=== PATIENT | female | born 1965 | race Caucasian/White ===

== ENCOUNTER 2021-04-21 15:51 | Outpatient (REF) | payer BC, SELFPAY ==
[2021-04-21 16:57] LABS: HCT 40.7 % (36.0-46.0); HGB 13.5 g/dL (11.2-15.7); MCH 29.2 pg (27.0-33.0); MCHC 33.2 % (32.0-36.0); MCV 87.9 fL (80-95); MPV 12.2 fL (8.0-11.0); Platelet Count 245 10^3/uL (130-400); RBC 4.63 10^6/uL (3.93-5.22); RDW 13.2 % (11.7-14.6); RDW-SD 42.7 fL; WBC 9.19 10^3/uL (4.4-10.8)
[2021-04-21 17:32] LABS: ALT 29 U/L (14-59); AST 17 U/L (15-37); Albumin 3.6 g/dL (3.4-5.0); Alkaline Phosphatase 77 U/L (46-116); Anion Gap 8.2 mmol/L (3-11); BUN 16 mg/dL (7-18); Bilirubin, Total 0.5 mg/dL (0.2-1.0); CO2 26.8 mmol/L (21.0-32.0); CREATININE 0.8 mg/dL (0.55-1.02); Calcium 8.8 mg/dL (8.5-10.1); Calculated LDL 84 mg/dL (<100); Chloride 107 mmol/L (98-107); Cholesterol 163 mg/dL (<200); Glucose 87 mg/dL (74-106); HDL Cholesterol 68 mg/dL (40-60); Potassium 4.5 mmol/L (3.5-5.1); Sodium 142 mmol/L (136-145); Total Protein 6.4 g/dL (6.4-8.2); Triglyceride 56 mg/dL (<150)
== END 2021-04-21 15:52 | disposition home or self-care (01) ==
LOC: NCHCN 15:51
PROVIDERS: Visit Provider Physician Assistant
DX: Z00.00 Encounter for general adult medical examination without abnormal findings (principal); Z13.220 Encounter for screening for lipoid disorders
CPT/HCPCS: 80053; 80061; 85027

== ENCOUNTER 2021-09-27 13:41 | Outpatient (REF) | payer BC, SELFPAY ==
--- NOTE | 2021-09-27 13:21 | ENDOMET_PTH ---
PATIENT: Maureen Saucedo LOC: [facility] U#:[id number] AGE/SX: 56/F ROOM: RE09/27/[address]: Maria Luisa Morris MD : 1965 BED: DIS: 09/27/2021 SPEC #: [id number] RECD: 09/27/21 16:39 STATUS: BASSEM REDalila #: [id number] JIMBO: 09/27/21 13:[address]: Maria Luisa Morris DEPT: Surgical Specimen RECD BY: Clementine Valencia Tissues: 1 - ENDOMETRIUM DEBI/MIHAI Procedures: GROSS AND MICRO LEVEL 4 Comments: [id number]
== END 2021-09-27 13:42 | disposition home or self-care (01) ==
LOC: LBN 13:41
PROVIDERS: Visit Provider Obstetrics & Gynecology
DX: N93.8 Other specified abnormal uterine and vaginal bleeding (principal); N85.8 Other specified noninflammatory disorders of uterus
CPT/HCPCS: 88305

== ENCOUNTER 2022-01-30 19:01 | Outpatient (REF) | payer BC, SELFPAY | END 2022-01-30 19:02 | disposition home or self-care (01) | LOC: LBN 19:01 | PROVIDERS: PCP Physician Assistant; Visit Provider Nurse Practitioner Women's Health | DX: R30.0 Dysuria (principal); N76.0 Acute vaginitis | CPT/HCPCS: 87086; 87480; 87510; 87660 ==

== ENCOUNTER 2022-04-14 11:12 | Outpatient (REF) | payer BC, SELFPAY ==
--- NOTE | 2022-04-14 09:30 | PAPFT_PTH ---
PATIENT: Maureen Saucedo LOC: [facility] U#:[id number] AGE/SX: 56/F ROOM: RE04/14/[address]: Connor May : 1965 BED: DIS: 04/14/2022 SPEC #: [id number] RECD: 04/14/22 17:12 STATUS: BASSEM REQ #: [id number] JIMBO: 04/14/22 09:[address]: Connor May DEPT: [facility] Cytology RECD BY: Clementine Valencia Tissues: 1 - CX/ENDOCX FOR PAP SMEARS Procedures: PAP THIN PREP/UVM Screening HPV DNA PROBE Comments: [id number]
== END 2022-04-14 11:13 | disposition home or self-care (01) ==
LOC: NCHCN 11:12
PROVIDERS: PCP Physician Assistant; Visit Provider Physician Assistant
DX: Z12.4 Encounter for screening for malignant neoplasm of cervix (principal); Z00.00 Encounter for general adult medical examination without abnormal findings; Z11.51 Encounter for screening for human papillomavirus (HPV)
CPT/HCPCS: 88142; 87624

== ENCOUNTER → 2022-05-10 02:33 | Outpatient (CLI) | payer BC, SELFPAY ==
--- NOTE | 2022-05-10 | DI.MAMMO_ITS ---
Exam(s) MAMMO SCREENING EXAM: MAMMO SCREENING CLINICAL HISTORY: SCREENING, Z12.39 TECHNIQUE: Mammograms were interpreted according to the usual protocol including computer analysis w [employer] CAD system, tomosynthesis and C-view imaging. COMPARISON: FINDINGS: The breasts are heterogeneously dense. No dominant mass or clumped microcalcification is identified in either breast. The current examination is compared with previous examinations including September and there has been no gross interval change in appearance in comparison with the prior studies. IMPRESSION: No specific evidence of malignancy at this time. Routine screening examinations are suggested at yea rly intervals due to the family history of breast carcinoma. BI-RADS Category 1 - Negative Breast Density - Category C - Heterogeneously dense
== END ==
PROVIDERS: PCP Physician Assistant; Visit Provider Physician Assistant
DX: Z12.31 Encounter for screening mammogram for malignant neoplasm of breast (principal); Z80.3 Family history of malignant neoplasm of breast
CPT/HCPCS: 77063; 77067

== ENCOUNTER 2022-06-28 17:43 | Outpatient (REF) | payer BC, SELFPAY ==
[2022-06-28 12:50] LABS: Bilirubin Negative (Negative); Blood Small (Negative); Clarity Clear (Clear); Glucose Negative (Negative); Ketones Negative (Negative); Leukocyte Esterase Negative (Negative); Nitrite Negative (Negative); Urobilinogen 0.2 EU/dL (Up TO 0.2)
[2022-06-28 13:10] LABS: Bacteria Rare HPF (Negative); Crystals Negative HPF (Negative); Epithelial Cells Many HPF (Negative); Mucus Negative (Negative); WBC 0-2 HPF (0-5)
[2022-06-28 13:11] LABS: C & S Indicated? No/Sq. Contamination; Casts Negative LPF (Negative)
== END 2022-06-28 17:44 | disposition home or self-care (01) ==
LOC: LBN 17:43
PROVIDERS: PCP Physician Assistant; Visit Provider Nurse Practitioner Gerontology
DX: R31.9 Hematuria, unspecified (principal)
CPT/HCPCS: 81003; 81015

== ENCOUNTER 2022-12-01 07:11 | Day surgery (SDC) | payer BC, SELFPAY ==
--- NOTE | 2022-11-30 10:56 | COLE_ITS ---
Date of service: 12/01/22 Time of Service: 09:14 Colonoscopy Report Date of procedure: 12/01/22 Pre-op diagnosis general: Hx of polyps Post-op diagnosis procedure note: other (normal ) Surgeon: Maureen Stoner Anesthesia Type: General:No Airway Estimated blood loss (mL): 0 Pathology: none sent Complications: None Disposition: same day Prep: Miralax/Dulcolax Retraction Time: 7 Procedure Description: After informed consent was obtained the patient was taken to the procedure room and placed in a left decubitous position. Monitors were applied and a time out was done. The patients name, date of , procedure, allergies to medications and metal in their body was reviewed. The patient was then sedated. Once sedated and comfortable a rectal exam was done. External exam was normal. Internal exam revealed a normal sphincter tone and no palpable masses. The scope was then introduced and retrofelexed. No internal hemorrhoids were identified. The scope was then advanced to the cecum with difficulty. The colo n is very tortuous and redundant colon. the TI and appendiceal orifice were identified. The prep was BBPS 3 in all segments for a total of 9. the scope was then slowly retracted over 7 minutes back into the rectum. there are no polyps, AVMs, or diverticula visualized today. Mucosa is pink and healthy with a normal vascular pattern. The scope was removed and the patient was woken up and taken back to Same day surgery in stable condition. The patient tolerated the procedure well and there were no immediate complications. Follow up: The patient should follow up in 10 years unless they develop changes in bowel habits or other new gastrointestinal complaints. For your next colon cancer screening consider having a Cologuard due to tortuosity.
--- NOTE | 2022-11-30 20:15 | PDOC.DSDIS_ITS ---
Date of service: 12/01/22 Time of Service: 09:17 Discharge Plan Disposition Patient Disposition: Home Condition: Good Discharge Details Reason For Visit: Colonoscopy Attending Provider: Maureen Stoner Primary Care Provider: Connor May Home Meds and New Rx's Prescriptions: Continued multivitamin Tablet 1 tab PO DAILY vitamin B complex [B Complex-Vitamin B12] Tablet 1 tab PO DAILY ascorbate calcium (vitamin C) 500 mg tablet 500 mg PO DAILY fluticasone propionate 50 mcg/actuation spray,suspension 2 spray intranasal DAILY Rx Instructions: administer into each nostril azelastine 205.5 mcg (0.15 %) spray,non-aerosol 2 spray intranasal DAILY PRN Rx Instructions: administer into each nostril black cohosh 200 mg capsule 200 mg PO DAILY PRN cholecalciferol (vitamin D3) 325 mcg (13,000 unit) capsule 325 mcg PO QWEEK coenzyme Q10 [Co Q-10] 10 mg capsule 10 mg PO ONCE estradiol 0.01 % (0.1 mg/gram) cream 1 g vaginal HS Qty: 60 3RF Rx Instructions: Insert a pea sized amount vaginally nightly for 2 weeks, then reduce to 3 times per week Discontinued bisacodyl 5 mg tablet,delayed release (DR/EC) 5 mg PO ONCE Qty: 4 0RF Rx Instructions: Per Colonoscopy bowel prep instructions polyethylene glycol 3350 17 gram/dose powder 238 g PO ONCE Qty: 238 0RF Rx Instructions: For Colonoscopy bowel prep, as directed by office Discharge Instructions Additional Instructions: DSU Colonoscopy Post- Op Instructions Instructions for Everyone who is given Anesthesia: For your safety, please do the following for the next twenty-four (24) hours: *Do Not operate a motor vehicle (car, truck, motorcycle, etc.) *Do Not drink alcoholic beverages or use any recreational drugs for the first 24 hours or while taking pain medications. The medications in your body may have a reaction that can be dangerous. *Do Not make any important decisions or sign any important papers. Findings: normal Follow up: consider cologuard in 10 yrs time 1. No lifting over 20 pounds or strenuous activity for the first 24 hours after your procedure. After 24 hours there are no restrictions on your activity but you may feel fatigued for a few days. 2. After you arrive home you may have a light meal and return to your normal diet as you can tolerate it without feeling sick to your stomach. 3. You may have a bloated, gaseous feeling in your belly (abdomen) after a colonoscopy. Passing gas and belching will help. Walking or lying down on your left side with your knees flexed may relieve the discomfort. Call the office at [phone] (Office) or [phone] (Hospital) right away if you notice any of the following: a.Vomiting of blood or ?coffee ground stools?. b.Rectal bleeding 1Tbsp, blood clots or continuous bleeding. c.Severe belly (abdominal) pain. d.A hard distended belly (abdomen) and an inability to pass gas. 4. Please don?t expect to have a normal BM (bowel movement) for 2-3 days after your procedure. 5. If there are questions regarding the findings of your procedure, please contact your doctor 6. If you are unable to contact your doctor with a problem, contact the hospital at [phone]. 7. Continue all your regular medications unless directed otherwise. I understand the above instructions and have no questions. Signature of Patient or Adult Escort Name of Responsible Adult Escort Signature of Nurse Date/Time Stand Alone Forms: Anesthesia Discharge Inst., Press Ganey (DSU) Activity:: see above Diet:: see above Discharge Orders Discharge Orders: Discharge Order (Routine); Ordered 12/01/22 Ordered By: Maureen Stoner DS: Diagnosis Discharge Diagnosis (1) History of colon polyps: Status: Acute Asessment and Plan: The patient is seen and examined after their colonoscopy.? The patient has been able to pass gas.? They are not having abdominal pain.? They have been able to tolerate liquids and a snack.? They do not have any nausea or vomiting.? They are not having any chest pain or shortness of breath.??? They are not having any rectal bleeding. Their vital signs have been stable-see nursing notes. We discussed findings during their colonoscopy, and any biopsies that were done/polyps that were removed. The patient will be sent a letter with any biopsy results, and when to repeat the colonoscopy.-see discharge instructions. Patient was given explicit instructions to follow-up regarding colonoscopy-refer to discharge instructions.? We reviewed resumption of medications.Patient verbalized understanding and discharged in stable and satisfactory condition- See nursing notes (2) Overweight: (3) Uterine fibroid: Status: Acute (4) Hematuria: Status: Acute (5) Perimenopausal: Status: Acute
--- NOTE | 2022-12-01 06:58 | W.ANESPRE ---
General Info Date of Service Date Performed: 12/01/22 Height: 5 ft 3 in Weight: 66.678 kg Body Mass Index (BMI): 26.0 Surgical Procedure: Operation Date: 12/01/22 08:20 Proposed Procedure Side Surgeon gerri Stoner, Meds Allergies and Home Medications Allergies Allergy/AdvReac Type Severity Reaction Status Date / Time No Known Drug Allergies Allergy Verified 12/01/22 07:30 Home Medication Medication Instructions Recorded cholecalciferol (vitamin D3) 325 325 mcg PO QWEEK 08/16/21 mcg (13,000 unit) capsule coenzyme Q10 10 mg capsule (Co 10 mg PO ONCE 08/16/21 Q-10) ascorbate calcium (vitamin C) 500 500 mg PO DAILY 04/19/22 mg tablet fluticasone propionate 50 2 spray intranasal DAILY 04/19/22 mcg/actuation nasal spray,suspension multivitamin 1 tab PO DAILY 04/19/22 vitamin B complex (B 1 tab PO DAILY 04/19/22 Complex-Vitamin B12 tablet) estradiol 0.01% (0.1 mg/gram) 1 g vaginal HS #60 grams 06/29/22 vaginal cream azelastine 205.5 mcg (0.15 %) 2 spray intranasal DAILY PRN 11/16/22 nasal spray black cohosh 200 mg capsule 200 mg PO DAILY PRN 11/16/22 Current Visit Medications: Current Medications Generic Name Dose Route Start Last Admin Trade Name Freq PRN Reason Stop Dose Admin Ringer's Solution 1,000 mls @ 80 mls/hr 12/01/22 06:00 IV 12/30/22 23:59 [facility] IV Miscellaneous Supplies 1 each 12/01/22 06:00 Iv Access IV 12/30/22 23:59 DIRECTED ASHU Ondansetron HCl 4 mg 12/01/22 10:31 Ondansetron 4 Mg/2 Ml Vial IVP 12/31/22 10:30 Q4H PRN PRN Nausea / Vomiting Sodium Chloride 0 ml 12/01/22 06:00 Normal Saline Flush 10 Ml Syr IV 12/30/22 23:59 PRN PRN Sodium Chloride 0 ml 12/01/22 06:00 Normal Saline 10 Ml Vial IJ 12/30/22 23:59 DIRECTED PRN Sterile Water 0 ml 12/01/22 06:00 Water,Injection,Sterile 10 Ml Vial IJ 12/30/22 23:59 DIRECTED PRN PFSH Active Problems Active Problems: Problem Status Onset Code History of colon polyps Z86.010 History of right mastoidectomy Z90.89 Screening for colon cancer Z12.11 Hematuria R31.9 Uterine fibroid D25.9 Perimenopausal N95.1 Medical History Medical History Abnormal uterine bleeding (AUB) None since Jul 11 2021 Decreased hearing of both ears Lesion of cervix Lipid screening No pertinent past medical history Other disorders following mastoidectomy, right ear Overweight Surgical History Surgical History No significant past surgical history Tobacco Smoking/Tobacco Use Status: Former Tobacco Use Alcohol Alcohol Intake: current Alcohol intake frequency: a few times a month Substance Use Substance use: Never Substance use type: does not use Prental History History 0 Para Hx # Term Pregnancies Multiple births Hx # Pregnancies Ectopic pregnancies AB induced Hx Number of Living Children AB spontaneous Vital Signs and Lab Results Vital Signs Most Recent Vital Signs in EMR: Temp Pulse Resp BP Pulse Ox 36.6 C 64 16 134/90 98 12/01/22 07:32 12/01/22 07:32 12/01/22 07:32 12/01/22 07:32 12/01/22 07:32 Lab Results Blood Type / Crossmatch: No Data to Display Complete Blood Count: No Data to Display Complete Metabolic Panel: No Data to Display Liver Function Panel: No Data to Display Coagulation Panel: No Data to Display Cardiac Panel: No Data to Display Arterial Blood Gas: No Data to Display Venous Blood Gas: No Data to Display Pancreas Panel: No Data to Display Thyroid Panel: No Data to Display Infectious Disease: No Data to Display Blood Cultures: No Data to Display Toxicology Panel: No Data to Display Anesthesia Assessment and Plan Anesthesia History Personal History: No History of Anesthesia Complications Family History: No Family History of Anesthesia Complications Exercise Tolerance Exercise Tolerance: Metabolic Equivalents>4 Cardiac & Pulmonary Exam Cardiac Exam: Normal S1/S2 Heart Sounds Pulmonary Exam: Clear Bilateral Breath Sounds Implantable Cardiac Device Does patient have a Pacemaker or an ICD?: No Airway Exam Known Difficult Airway: No Mallampati Class: 2 Mouth Opening: Normal (> 3cm) Thyromental Distance: Less than 3 cm Neck Range of Motion: Full ROM Neck Circumference: Normal Teeth Condition: Normal Dentition ASA Classification ASA Score: ASA 2 Emergency Case?: No NPO Status NPO Status: NPO Clears >2 hours, Solids >8 hours Anesthesia Plan Resuscitation Status: Full Code Anesthesia Technique: General Anesthesia Airway Planned: Natural Airway Monitors Used: Standard Monitors Preoperative Comments:: 57 yo female for colo. Sig PMHx: former smoker, occ EtOH, pre HTN, denies any major.
[2022-12-01 07:02] VITALS: BMI 26.0
[2022-12-01 07:32] VITALS: BP 134/90; PULSE 64; RESP 16; TEMP 36.6; O2SAT 98
[2022-12-01] MEDS: Lactated Ringers 1,000 ML 80 ML IV (07:42)
[2022-12-01 09:02] VITALS: BP 145/81; PULSE 61; RESP 16; TEMP 36; O2SAT 99
--- NOTE | 2022-12-01 09:19 | W.ANESPOSTOP ---
Postoperative Evaluation Date, Time and Location Date Performed: 12/01/22 Time Performed: 09:19 Patient Location: Day Surgery Unit Vital Signs Most Recent Imported Vital Signs: Most Recent Vital Signs Temp Pulse Resp BP Pulse Ox 36 C L 61 16 145/81 H 99 12/01/22 09:02 12/01/22 09:02 12/01/22 09:02 12/01/22 09:02 12/01/22 09:02 Pain Score Most Recent Pain Score: Most Recent Pain Score Pain Level 0 12/01/22 09:02 Assessment Mental Status: Awake (Alert & Oriented to Patient Baseline) Airway and Respiratory Function: Patent airway with normal (patient baseline) respiratory exam Cardiovascular Function: Hemodynamically Stable Hydration Status: Adequately Hydrated Nausea & Vomiting: No Nausea or Vomiting Pain: Pt. Denies Any Pain Peripheral Nerve Block: Patient did not receive a nerve block
[2022-12-01 09:25] VITALS: BP 159/88; PULSE 58; RESP 16; TEMP 36.2; O2SAT 100
== END 2022-12-01 09:42 | disposition home or self-care (01) ==
PROVIDERS: PCP Physician Assistant; Visit Provider Surgery
PROC: 0DJD8ZZ Inspection of Lower Intestinal Tract, Via Natural or Artificial Opening Endoscopic (ICD-10-PCS; CPT 45378; principal; 2022-12-01 08:15)
DX: Z12.11 Encounter for screening for malignant neoplasm of colon (principal); Z86.010 Personal history of colon polyps
CPT/HCPCS: 45378; 81025; J2001

== ENCOUNTER 2023-04-16 21:43 | Outpatient (REF) | payer BC, SELFPAY ==
[2023-04-16 14:46] LABS: Bacteria Few HPF (Negative); Epithelial Cells Moderate HPF (Negative); Other Cells Few Yeast (Negative); RBC Negative HPF (0-2); WBC Negative HPF (0-5)
[2023-04-16 14:47] LABS: C & S Indicated? No; Casts Negative LPF (Negative); Crystals Negative HPF (Negative); Mucus Negative (Negative)
== END 2023-04-16 21:44 | disposition home or self-care (01) ==
LOC: NCHCN 21:43
PROVIDERS: PCP Physician Assistant; Visit Provider Physician Assistant
DX: R31.9 Hematuria, unspecified (principal)
CPT/HCPCS: 81015

== ENCOUNTER → 2023-05-17 01:09 | Outpatient (CLI) | payer BC, SELFPAY ==
--- NOTE | 2023-05-17 | DI.MAMMO_ITS ---
Exam(s) MAMMO SCREENING EXAM: MAMMO SCREENING CLINICAL HISTORY: SCREENING, Z12.39 TECHNIQUE: Bilateral full field digital CC and MLO mammographic images were obtained with 3D tomosyn thesis and utilizing computer aided detection (CAD). COMPARISON: Available for comparison. FINDINGS: Masses/Architectural Distortion: None seen. Microcalcifications: No suspicious pleomorphic-type are seen. Skin Thickening/Nipple Retraction: None. IMPRESSION: 1. No significant interval change with no specific features of malignancy noted. 2. Unless there is more urgent need, screening mammography is recommended, as per [employer] guidelines. BI-RADS Category 1 - Negative Breast Density - Category C - Heterogeneously dense Breast density category C or D implies that the patient has dense breast tissue. Dense breast tissue is very common and is not abnormal but dense breast tissue can make it harder to find cancer on a ma mmogram. Also, dense breast tissue may increase their breast cancer risk. This information about the result of the mammogram report was provided to the patient to raise their awareness. Use this report when you speak with the patient about their risks for breast cancer, which includes their family hist ory. At that time, you may recommend for more screening tests (Ultrasound or MRI) as they might be us eful based on their risk. A negative radiographic report should not delay biopsy if a dominant or clinically suspicious mass is present. Up to ten percent of cancers are not identified on mammography. A negative report may reinforce clinical impression. Adenosis and dense breasts may obscure an underlying neoplasm. False positive reports average 6 to 10%. Patient will receive a letter notifying them of these results.
== END ==
PROVIDERS: PCP Physician Assistant; Visit Provider Physician Assistant
DX: Z12.31 Encounter for screening mammogram for malignant neoplasm of breast (principal)
CPT/HCPCS: 77063; 77067

== ENCOUNTER 2023-06-27 10:31 | Outpatient (REF) | payer BC, SELFPAY ==
[2023-06-27 15:46] LABS: Anion Gap 9.1 mmol/L (3-11); BUN 24 mg/dL (7-18); CO2 27.9 mmol/L (21.0-32.0); Calcium 9.4 mg/dL (8.5-10.1); Chloride 106 mmol/L (98-107); Glucose 89 mg/dL (74-106); Potassium 4.7 mmol/L (3.5-5.1); Sodium 143 mmol/L (136-145)
== END 2023-06-27 10:32 | disposition home or self-care (01) ==
LOC: NCHCN 10:31
PROVIDERS: PCP Physician Assistant; Visit Provider Physician Assistant
DX: I10 Essential (primary) hypertension (principal)
CPT/HCPCS: 80048

== ENCOUNTER 2023-08-30 14:49 | Outpatient (CLI) | payer BC, SELFPAY ==
--- NOTE | 2023-08-30 13:53 | DI.RAD_ITS ---
Exam(s) XR HAND RT COMPLETE EXAM: XR HAND RT COMPLETE CLINICAL HISTORY: hand pain. TECHNIQUE: 2D digital imaging was performed. Three views. COMPARISON: No exams were available for comparison FINDINGS: BONES: No acute fracture is present. No bony destructive lesion is seen. JOINTS: There is severe narrowing of the 1st carpal metacarpal joint. Prominent periarticular spurri ng. There is some bony remodeling. Lateral subluxation of the 1st metacarpal. Hyperextension at th e 1st metacarpophalangeal joint. Mild degenerative changes of the 2nd metacarpophalangeal joint. SOFT TISSUE: Normal. 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
== END 2023-08-30 14:50 | disposition home or self-care (01) ==
LOC: DIORS 14:50
PROVIDERS: PCP Physician Assistant; Visit Provider Physician Assistant
DX: M19.041 Primary osteoarthritis, right hand (principal)
CPT/HCPCS: 73130

== ENCOUNTER 2023-09-11 06:22 | Day surgery (SDC) | payer BC, SELFPAY ==
[2023-09-11 06:37] VITALS: BP 124/72; PULSE 88; RESP 16; TEMP 36.7; O2SAT 99
--- NOTE | 2023-09-11 07:08 | PDOC.DSDIS_ITS ---
Date of service: 09/11/23 Time of Service: 07:08 Discharge Plan Disposition Patient Disposition: Home Condition: Good Discharge Details Reason For Visit: Cyst Excision Finger Attending Provider: Real Parekh Primary Care Provider: Connor May Home Meds and New Rx's Prescriptions: New acetaminophen 500 mg tablet 1,000 mg PO TID Qty: 90 0RF ibuprofen 600 mg tablet 600 mg PO TID PRN (Reason: pain) Qty: 90 0RF Continued multivitamin Tablet 1 tab PO DAILY vitamin B complex [B Complex-Vitamin B12] Tablet 1 tab PO DAILY ascorbate calcium (vitamin C) 500 mg tablet 500 mg PO DAILY azelastine 205.5 mcg (0.15 %) spray,non-aerosol 2 spray intranasal DAILY PRN Rx Instructions: administer into each nostril black cohosh 200 mg capsule 200 mg PO DAILY PRN coenzyme Q10 [Co Q-10] 10 mg capsule 10 mg PO ONCE cholecalciferol (vitamin D3) 325 mcg (13,000 unit) capsule 325 mcg PO DAILY dmidris-mzgj-catvh-oreg-capryl PO DAILY AM lisinopril 10 mg tablet 10 mg PO DAILY estradiol 0.01 % (0.1 mg/gram) cream 1 g vaginal HS Qty: 60 3RF Rx Instructions: Insert a pea sized amount vaginally nightly for 2 weeks, then reduce to 3 times per week chondroitin sulfate-turmeric 600-125 mg tablet PO Discharge Instructions Additional Instructions: Cyst Excision Discharge Instructions Activity: You should keep the hand elevated as much as possible for the first few days. You may use the other fingers as tolerated but avoid trying to do too much too soon. You may perform light activities with the splint in place. Dressing/Cast: You man remove the dressing after 48 hours. You may also get the incision wet after [address] a Band-Aid over the incision if desired. Medications: - You should take Tylenol and Ibuprofen for baseline pain control. - You may apply ice over the finger. Follow-up: 7-10 days Referrals: Real Parekh MD [ [facility] STAFF PHYSICIAN] - Activity:: Activity as Tolerated Remove Dressings/Wound Care:: 48 hours Shower/Bathe:: 48 hours Diet:: As Tolerated Discharge Orders Discharge Orders: Discharge Order (Routine); Ordered 04/09/24 Ordered By: Jarrell Morales DS: Diagnosis Discharge Diagnosis (1) Ganglion cyst of joint of finger of right hand: Status: Acute
[2023-09-11] MEDS: Lidocaine 1% Multi-Dose W/EPI 1/100,000 50 ML VIAL (07:31)
[2023-09-11] MEDS: Sodium Bicarbonate 50 MEQ/50 ML VIAL (07:31)
[2023-09-11 07:51] VITALS: BP 120/69; PULSE 68; RESP 16; TEMP 37; O2SAT 100
--- NOTE | 2023-09-11 10:16 | W.PM.OP ---
Date of service: 09/11/23 Time of Service: 07:25 Operative Note Operative Note DATE OF PROCEDURE: 09/11/23 PRE-OP DIAGNOSIS: Right Index Finger Ganglion Cyst POST-OP DIAGNOSIS: same PROCEDURE: Ganglion Cyst Excision - Right Index Finger, Dorsal MCP joint SURGEON: Real Parekh ANESTHESIA TYPE: Local By Surgeon Refer to Anesthesia Record ESTIMATED BLOOD LOSS: 5 PATHOLOGY: none sent COMPLICATIONS: None Patient was transported to: same day Patient's condition: stable Indications: I have seen Maureen in clinic for symptoms of a ganglion cyst about the dorsum of the right hand, index finger MCP joint. The mass persisted and caused pain to direct contact and with use. The diagnosis of a likely ganglion cyst was made. The symptoms had not responded to conservative measures. I discussed cyst excision with the patient. I reviewed the risks of the procedure to include, but not limited to, bleeding, infection, pain, stiffness, recurrence, damage to nerves or vessels. Despite these risks, the patient elected to proceed. Findings: There was a cyst of the dorsal index finger ray, arising from the MCP joint. The cyst and its capsule was removed and an arthrotomy at the cyst location performed. A portion of the extensor lynch was transected and later repaired. Procedure Description: Maureen was greeted in the preoperative holding area where the correct side was identified and marked. The consent was reviewed with the patient and signed. All questions were answered. She was taken back to the operating room. The patient was placed into the supine position on the operating room table with the right arm on an arm board. All bony prominences were well padded. No prophylactic antibiotics were administered since this was a clean, elective hand surgical case. The right hadn/arm was then prepped with Chloraprep and draped in a standard fashion with stockinette and extremity drape. A timeout to confirm correct identity, side and site, procedure, allergies, anesthesia, and medical concerns was performed. A field block was then performed using 1% lidocaine with epinephrine and buffered with sodium bicarbonate. This was allowed time to set up completely and was tested before proceeding with the case. A longitudinal incision was then made overlying the cyst. The skin was incised sharply. Full-thickness flaps were then elevated to expose the cyst. This cyst was deep underneath the extensor lynch. The proximal aspect of the extensor lynch was incised, approxi-4 to 5 mm allowing for better visualization of the cystic capsule. Then, the cyst was deflated and its capsule was then removed with a rongeur and followed back towards the MCP joint. Using the rongeur and a [place] I was able to penetrate into the MCP joint creating a small arthrotomy from the origin of the cyst. The finger was irrigated and once again checked to make sure that all components of the cyst were removed. The extensor lynch was then reapproximated with #3-0 Vicryl. The skin was then closed using a #4-0 nylon in interrupted fashion. The finger was dressed with Xeroform, 4 x 4, conformer dressing. The patient tolerated the procedure well and was returned to the Same Day Surgery area in a stable condition suffering no known complication.
== END 2023-09-11 08:01 | disposition home or self-care (01) ==
PROVIDERS: PCP Physician Assistant; Visit Provider Student in an Organized Health Care Education/Training Program
PROC: (CPT 26160; principal; 2023-09-11 07:30)
DX: M67.441 Ganglion, right hand (principal)
CPT/HCPCS: 26160; J2004

== ENCOUNTER 2024-01-31 10:02 | Outpatient (REF) | payer BC, SELFPAY ==
[2024-01-31 13:45] LABS: Bilirubin Negative (Negative); Blood Moderate (Negative); Clarity Sl Cloudy (Clear); Glucose Negative (Negative); Ketones Negative (Negative); Leukocyte Esterase Small (Negative); Nitrite Positive (Negative); Specific Gravity >= 1.030 (1.005-1.025); Urobilinogen 0.2 mg/dL (Up to 0.2); pH 5.5 (5-8)
[2024-01-31 14:19] LABS: Bacteria Few HPF (Negative); C & S Indicated? No/Sq. Contamination; Casts Negative LPF (Negative); Crystals Negative HPF (Negative); Epithelial Cells Many HPF (Negative); Mucus Negative (Negative)
== END 2024-01-31 10:03 | disposition home or self-care (01) ==
LOC: LBN 10:02
PROVIDERS: PCP Physician Assistant; Visit Provider Physician Assistant
DX: R30.0 Dysuria (principal)
CPT/HCPCS: 81003; 81015

== ENCOUNTER 2024-02-22 07:50 | Outpatient (CLI) | payer BC, SELFPAY ==
[2024-02-22 08:13] LABS: Abs Immature Grans 0.02 10^3/uL (0.0-0.06); Absolute Basophil Count 0.07 10^3/uL (0.0-0.2); Absolute Eosinophil Count 0.37 10^3/uL (0.0-0.7); Absolute Monocyte Count 0.54 10^3/uL (0.1-0.8); Absolute Neutrophil Count 3.35 10^3/uL (1.2-6.7); ESR 2 mm/hr (0-30); Eosinophils % 5.2 %; HCT 42.1 % (36.0-46.0); HGB 14.2 g/dL (11.2-15.7); Immature Grans % 0.3 %; Lymphocytes % 38.3 %; MCH 29.6 pg (27.0-33.0); MCHC 33.7 % (32.0-36.0); MCV 88 fL (80-95); MPV 10.6 fL (8.0-11.0); Monocytes % 7.7 %; Neutrophils % 47.5 %; Platelet Count 262 10^3/uL (130-400); RDW 12.4 % (11.7-14.6); RDW-SD 39.8 fL; WBC 7.05 10^3/uL (4.4-10.8)
[2024-02-22 09:11] LABS: ALT 28 U/L (14-59); BUN 19 mg/dL (7-18); Bilirubin, Direct 0.2 mg/dL (0.0-0.2); Bilirubin, Total 0.64 mg/dL (0.2-1.0); TSH 1.74 uIU/Ml (0.36-3.74); Vitamin D 25 Total 43.4 ng/mL (30-100)
[2024-02-22 09:29] LABS: FREE T4 0.92 ng/dL (0.76-1.46)
[2024-02-22 09:37] LABS: C-Reactive Protein < 0.50 mg/dL (<or=0.5)
[2024-02-22 17:29] LABS: Rheumatoid Factor <8.6 IU/mL (<12.0)
[2024-02-24 16:20] LABS: Bartonella Henselae IgG <1:128 titer (<1:128); Bartonella Henselae IgM <1:20 titer (<1:20); Bartonella Quintana IgG <1:128 titer (<1:128); Bartonella Quintana IgM <1:20 titer (<1:20)
[2024-02-25 09:45] LABS: Cyclic Citrullinated Peptide <2.5 U/mL (<5.0)
[2024-02-25 09:58] LABS: C3 Complement 89 mg/dL (81-157); C4 Complement 26 mg/dL (13-39)
[2024-02-25 10:12] LABS: Lyme Ab w Rflx to Lyme Confirm Negative (Negative)
[2024-02-25 12:06] LABS: RNP Ab, IgG <6.0 CU (<20.0); Ro60 Ab, IgG <7.0 CU (<20.0); SS-A/Ro, IgG <2.3 CU (<20.0); SS-B (La) Ab, IgG <3.3 CU (<20.0); Sm (Smith) Ab, IgG <8.0 CU (<20.0); dsDNA Ab, IgG <22.0 IU/mL (<27.0)
[2024-02-25 14:26] LABS: ANA Interpretation Negative (Negative)
[2024-02-25 14:30] LABS: Complement, Total 59 U/mL (30-75)
[2024-02-27 16:15] LABS: Anaplasma phagocytophilum IgG <1:64 titer (<1:64); Ehrlichia Chaffeensis(HME) IgG <1:64 titer (<1:64)
[2024-02-28 14:13] LABS: IgG Immunoblot Negative (Negative); IgM Immunoblot Negative (Negative)
[2024-02-28 21:24] LABS: Chromatin (Nucleosomal) Ab <1.0 NEG AI
== END 2024-02-22 07:51 | disposition home or self-care (01) ==
LOC: LBO 07:50
PROVIDERS: PCP Physician Assistant; Visit Provider Internal Medicine Infectious Disease
DX: A69.20 Lyme disease, unspecified (principal); M25.59 Pain in other specified joint; R53.83 Other fatigue
CPT/HCPCS: 36415; 82306; 84520; 85652; 86200; 86235; 86753; 87798; 82247; 82248; 82565; 84439; 84443; 84460; 85025; 86038; 86140; 86160; 86162; 86225; 86431; 86611; 86618; 86666

== ENCOUNTER 2024-05-20 01:43 | Outpatient (CLI) | payer BC, SELFPAY ==
--- NOTE | 2024-05-20 | DI.MAMMO_ITS ---
Exam(s) MAMMO SCREENING EXAM: MAMMO SCREENING CLINICAL HISTORY: SCREENING MAMMO Z12.31 TECHNIQUE: Bilateral full field digital CC and MLO mammographic images were obtained with 3D tomosyn thesis and utilizing computer aided detection (CAD). COMPARISON: Available for comparison. FINDINGS: Masses/Architectural Distortion: None seen. Microcalcifications: No suspicious pleomorphic-type are seen. Skin Thickening/Nipple Retraction: None. IMPRESSION: 1. No significant interval change with no specific features of malignancy noted. 2. Unless there is more urgent need, screening mammography is recommended, as per [employer] guidelines. BI-RADS Category 1 - Negative Breast Density - Category C - Heterogeneously dense Breast density category C or D implies that the patient has dense breast tissue. Dense breast tissue is very common and is not abnormal but dense breast tissue can make it harder to find cancer on a ma mmogram. Also, dense breast tissue may increase their breast cancer risk. This information about the result of the mammogram report was provided to the patient to raise their awareness. Use this report when you speak with the patient about their risks for breast cancer, which includes their family hist ory. At that time, you may recommend for more screening tests (Ultrasound or MRI) as they might be us eful based on their risk. A negative radiographic report should not delay biopsy if a dominant or clinically suspicious mass is present. Up to ten percent of cancers are not identified on mammography. A negative report may reinforce clinical impression. Adenosis and dense breasts may obscure an underlying neoplasm. False positive reports average 6 to 10%. Patient will receive a letter notifying them of these results.
== END 2024-05-20 02:03 ==
LOC: DI 01:43
PROVIDERS: PCP Physician Assistant; Visit Provider Physician Assistant
DX: Z12.31 Encounter for screening mammogram for malignant neoplasm of breast (principal); R92.333 Mammographic heterogeneous density, bilateral breasts
CPT/HCPCS: 77063; 77067

== ENCOUNTER 2025-03-12 15:40 | Outpatient (REF) | payer BC, SELFPAY ==
[2025-03-12 17:00] LABS: Glucose Negative (Negative)
[2025-03-12 17:09] LABS: C & S Indicated? No; WBC 0-2 HPF (0-5)
== END 2025-03-12 15:41 | disposition home or self-care (01) ==
LOC: LBN 15:40
PROVIDERS: PCP Physician Assistant; Visit Provider Nurse Practitioner Gerontology
DX: R31.9 Hematuria, unspecified (principal)
CPT/HCPCS: 81003; 81015

== ENCOUNTER → 2025-05-21 00:17 | Outpatient (CLI) | payer BC, SELFPAY ==
--- NOTE | 2025-05-21 08:47 | DI.MAMMO_ITS ---
Exam(s) MAMMO SCREENING EXAM: MAMMO SCREENING CLINICAL HISTORY: SCREENING, Z12.31 TECHNIQUE: Bilateral full field digital CC and MLO mammographic images were obtained with 3D tomosynthesis and utilizing computer aided detection (CAD). COMPARISON: Comparison is made with prior examinations. FINDINGS: Masses/Architectural Distortion: No suspicious masses or areas of architectural distortion are present. Microcalcifications: No suspicious pleomorphic-type are seen. Skin Thickening/Nipple Retraction: None. IMPRESSION: 1. No significant interval change with no specific features of malignancy noted. 2. Unless there is more urgent need, screening mammography is recommended, as per [employer] guidelines. BI-RADS Category 1 - Negative Breast Density - Category C - The breast are heterogeneously dense, which may obscure small masses. Breast density Category C or D implies that the patient has dense breast tissue. Dense breast tissue can make it harder to find cancer on a mammogram. Dense breast tissue is also associated with an increased risk of breast cancer. This information about the result of the mammogram report was provided to the patient to raise their awareness. Use this report when you speak with the patient about their risks for breast cancer, which includes their family history. At that time, you may recommend additional screening tests (Ultrasound or MRI) as these tests may add significant information. A negative radiographic report should not delay biopsy if a dominant or clinically suspicious mass is present. Up to ten percent of cancers are not identified on mammography. A negative report may reinforce clinical impression. Adenosis and dense breasts may obscure an underlying neoplasm. False positive reports average 6 to 10%. Patient will receive a letter notifying them of these results.
== END ==
LOC: DI 00:17
PROVIDERS: PCP Physician Assistant; Visit Provider Physician Assistant
DX: Z12.31 Encounter for screening mammogram for malignant neoplasm of breast (principal)
CPT/HCPCS: 77063; 77067